=== PATIENT | female | born 1990 | race Caucasian/White ===

== ENCOUNTER → 2025-01-19 15:10 | Outpatient (REF) | payer BC, SELFPAY | LOC: CLAB 15:10 | PROVIDERS: ATTENDING PHYSICIAN Otolaryngology | DX: H60.391 Other infective otitis externa, right ear (principal) | CPT/HCPCS: 87070 ==

== ENCOUNTER → 2025-06-15 15:00 | Outpatient (REF) | payer BC, SELFPAY | LOC: CLAB 15:00 | PROVIDERS: ATTENDING PHYSICIAN Otolaryngology | DX: H60.391 Other infective otitis externa, right ear (principal) | CPT/HCPCS: 87070; 87071; 87186 ==